=== PATIENT | male | born 1980 | race Caucasian/White ===

== ENCOUNTER 2017-04-23 03:54 | Emergency (ER) | payer SELFPAY, MEDICAID ==
[2017-04-23 05:20] LABS: ADD MAN DIFF? NO
[2017-04-23 05:23] LABS: WHITE BLOOD COUNT 11.8 10^3/ul (4.8-10.8)
[2017-04-23 05:23] LABS: BASOPHILS % 0.3 % (0.0-2.0); EOSINOPHILS # 0.1 10^3/ul (0.0-0.5); EOSINOPHILS % 0.8 % (0.0-7.0); HEMOGLOBIN 15.1 g/dl (14.0-18.0); LYMPHOCYTES # 2.3 10^3/ul (0.8-2.9); MEAN CORPUSCULAR HEMOGLOBIN 31.4 pg (29.0-33.0); MEAN CORPUSCULAR VOLUME 87.3 fl (82.0-101.0); MEAN PLATELET VOLUME 10.3 fl (7.4-10.4); MONOCYTE # 0.9 10^3/ul (0.3-0.9); MONOCYTES % 7.8 % (0.0-11.0); NEUTROPHIL # 8.5 10^3/ul (1.6-7.5); NEUTROPHILS % 71.8 % (39.0-77.0); PLATELET COUNT 248 10^3/UL (140-415); RED BLOOD COUNT 4.81 10^6/ul (4.70-6.10)
[2017-04-23] MEDS: ONDANSETRON 4 MG INJ IV (05:32)
[2017-04-23] MEDS: LORAZEPAM 2 MG INJ IV (05:32)
[2017-04-23] MEDS: SOD CHLORIDE 0.9% 1,000 ML IV (05:32)
[2017-04-23] MEDS: HYDROmorphONE 0.5 MG/0.5 ML SYG IV (05:33)
[2017-04-23 05:43] LABS: ALANINE AMINOTRANSFERASE 44 IU/L (13-69); ALBUMIN 4.1 g/dl (3.3-4.9); ALKALINE PHOSPHATASE 139 IU/L (42-121); ANION GAP 18 (8-16); ASPARTATE AMINO TRANSFERASE 31 IU/L (15-46); BILIRUBIN,INDIRECT 0.3 mg/dl (0-1.1); BILIRUBIN,TOTAL 0.3 mg/dl (0.2-1.3); BLOOD UREA NITROGEN 16 mg/dl (7-20); CALCIUM 9.3 mg/dl (8.4-10.2); CARBON DIOXIDE 22 mmol/L (21-31); CHLORIDE 104 mmol/L (97-110); CREATININE 0.76 mg/dl (0.61-1.24); GLUCOSE 149 mg/dl (70-220); LIPASE 78 U/L (23-300); POTASSIUM 3.9 mmol/L (3.5-5.1); SODIUM 140 mmol/L (135-144); TOTAL PROTEIN 7.5 g/dl (6.1-8.1)
[2017-04-23] MEDS: IOHEXOL 300MG/ML 150 ML BTL (06:33)
[2017-04-23] MEDS: SOD CHLORIDE 0.9% 100 ML (06:33)
[2017-04-23 06:34] LABS: CREATINE KINASE 60 IU/L (23-200)
[2017-04-23 06:56] LABS: ADD UMIC NO; UR ASCORBIC ACID NEGATIVE (NEGATIVE); UR BILIRUBIN (Dip) NEGATIVE (NEGATIVE); UR BLOOD (Dip) NEGATIVE (NEGATIVE); UR CLARITY CLEAR (CLEAR); UR COLOR YELLOW (YELLOW); UR GLUCOSE (Dip) NEGATIVE (NEGATIVE); UR KETONES (Dip) NEGATIVE (NEGATIVE); UR LEUKOCYTE ESTERASE (Dip) NEGATIVE Leu/ul (NEGATIVE); UR NITRITE (Dip) NEGATIVE (NEGATIVE); UR SPECIFIC GRAVITY (Dip) 1.014 (1.003-1.030); UR TOTAL PROTEIN (Dip) NEGATIVE (NEGATIVE); UR UROBILINOGEN (Dip) 2+ mg/dL (NEGATIVE)
[2017-04-23] MEDS: morphine 4 MG/ML VIAL IV (07:06)
== END 2017-04-23 08:03 | disposition home or self-care (01) ==
LOC: E/R 03:54
DX: G62.9 Polyneuropathy, unspecified (principal); R10.84 Generalized abdominal pain; R51 Headache
CPT/HCPCS: 36415; 70450; 71045; 74177; 80053; 81003; 82550; 83690; 85025; 96374; 96375; 99285-25